=== PATIENT | female | born 1980 | race African-American/Black ===

== ENCOUNTER 2016-09-23 15:33 | Emergency (ER) | payer SELFPAY ==
[2016-09-23 16:14] LABS: BILIRUBIN,URINE NEGATIVE (NEGATIVE); BLOOD/HEMOGLOBIN,URINE NEGATIVE (NEGATIVE); GLUCOSE, URINE NEGATIVE (NEGATIVE); KETONES,URINE NEGATIVE (NEGATIVE); LEUKOCYTE ESTERASE ,URINE NEGATIVE (NEGATIVE); NITRITES,URINE NEGATIVE (NEGATIVE); PROTEIN,URINE NEGATIVE (NEGATIVE); UROBILINOGEN,URINE NORMAL (NORMAL)
[2016-09-23 16:28] LABS: APPEARANCE,URINE CLEAR (CLEAR); BACTERIA,URINE NEGATIVE /HPF (NEGATIVE); COLOR,URINE YELLOW (YELLOW); MUCUS,URINE MODERATE /HPF (NEGATIVE); RBC,URINE NONE SEEN /HPF (NEGATIVE); SQUAMOUS EPITHELIAL CELL,UR FEW /HPF (NEGATIVE)
--- NOTE | 2016-09-23 16:45 | DR.PSYCH ---
HPI - Time Seen Time seen: 16:00 - Complaint Chief Complaint:: pt was brought in by [facility]ht[facility] wise after interview in which she was being arrested. she told that she would kill herself. - Reviewed Nurses Notes Review: Yes - Source History Provided: Patient, Law Enforcement - Mode of Arrival Mode of Arrival: Ambulatory - Timing Onset of Chief Complaint: 09/23/16 Came on: Suddenly - Duration Duration: Constant Duration: Minutes - Context Presents With: Depression, Violence Ideation: Suicidal Plan: None Stressors: Other (drug abuse) History of: Depression, Suicidal Attempt Medication Compliance: No - Quality Quality: None Hallucinations: None - Severity Severity: Able to care for self - Associated signs and symptoms Intoxification: Cocaine (benzo and THC) PMH - PMH Past Medical History: Yes Past Medical History: Asthma, Migraines Past Surgical History: No (unknown) - Family History History of Family Medical Conditions: Yes Family Medical History: Hypertension - Social History Do you use any recreational Drugs:: No Lives Where: Home - infectious screening In the last 2 months have you had wt loss of >10#?: MARINA Have you had fever, night sweats or hemotysis?: MARINA Have you traveled outside the country in the last 6 months?: No Isolation: Standard ROS - Review of Systems Constitutional: No Symptoms Reported Eyes: No Symptoms Reported ENTM: No Symptoms Reported Respiratoy: No Symptoms Reported Cardiovascular: No Symptoms Reported Gastrointestinal/Abdominal: No Symptoms Reported Genitourinary: No Symptoms Reported Neurological: Emotional Problems Musculoskeletal: No Symptoms Reported Integumentary: No Symptoms Reported Hematologic/Lymphatic: No Symptoms Reported Endocrine: No Symptoms Reported Psychiatric: Depression, Suicidal All Other Systems: Reviewed and Negative PE - Vitals Vitals: Temperature 98.2 F Pulse Rate 76 Respiratory Rate 18 Blood Pressure [Right Arm] 122/74 Blood Pressure [Left Arm] 107/72 Blood Pressure [Standing] 135/94 Blood Pressure [Sitting] 124/86 Blood Pressure [Lying] 114/71 Blood Pressure 134/69 O2 Sat by Pulse Oximetry 99 - General Limitations: No Limitations General Appearance: Alert, Appears Intoxicated - Head Head Exam: Normal Inspection Head Exam Physical: negative: Laceration, Abrasion, Contusion, Hematoma, Raccoon Eyes, Shaw's Sign, Tenderness of Temporal Artery, CSF Rhinorrhea, CSF Otorrhea, Other - Eyes Eye exam: Normal Appearance, EOMI. negative: Scleral Icterus, Conjunctival Injection Pupils: Regular, Round: Bilateral Sclera/Conjunctival: Normal Inspection: Bilateral - ENT ENT Exam: Normal Exam, Normal Oropharynx - Neck Neck Exam: Normal Inspection, Full ROM, Trachea Midline - Chest Chest Inspection: Normal Inspection - Respiratory Respiratory Exam: Normal Lung Sounds Bilat. negative: Accessory Muscle Use, Respiratory Distress Respiratory Exam: Bilateral Clear to Auscultation - Cardiovascular Cardiovascular Exam: Regular Rate - Extremities Extremities Exam: Normal Inspection, Full ROM - Back Back Exam: Normal Inspection - Neurologic Neurological Exam: Alert, Oriented X3, CN II-XII Intact Patient Oriented To: Person, Place, Time Cranial Nerve Exam: EOM Function (II, III, IV, ): Normal, Facial Sensation (V) : Normal, Facial Palsy (VII): Normal, Spinal Accessory Function (XI): Normal, Tongue Deviation: Normal Cerebellar Function: Normal Gait - Psychiatric Psychiatric Exam: Agitated, Suicidal Ideation - Skin Skin Exam: Intact, Normal Color Course - Treatment Treatment: 2121: patient evaluated by mental health. outpatient therapy recommended. will discharge from. [facility] - Labs Reviewed Result Diagrams: 09/23/16 16:52 09/23/16 16:52 Laboratory: WBC 11.1 X10^3/uL (3.6-10.0) H 09/23/16 16:52 RBC 4.54 X10^6/uL (3.5-5.4) 09/23/16 16:52 Hgb 13.6 g/dL (12.0-16.0) 09/23/16 16:52 Hct 41.4 % (36.0-47.0) 09/23/16 16:52 MCV 91.2 fL (80.0-100.0) 09/23/16 16:52 MCH 30.1 pg (27.0-34.0) 09/23/16 16:52 MCHC 32.9 g/dL (33.0-35.0) L 09/23/16 16:52 RDW 14.0 % (11.6-16.5) 09/23/16 16:52 Plt Count 288 X10^3/uL (150.0-450.0) 09/23/16 16:52 MPV 7.7 fL (7.4-11.0) 09/23/16 16:52 Neut % 50.1 % (42.0-75.0) 09/23/16 16:52 Lymph % 41.9 % (21.0-51.0) 09/23/16 16:52 [place] % 4.8 % (0.0-13.0) 09/23/16 16:52 Eos % 1.8 % (0.9-2.9) 09/23/16 16:52 Baso % 1.4 % (0.2-1.0) H 09/23/16 16:52 Neut # 5.5 x10^3/uL (2.2-4.8) H 09/23/16 16:52 Lymph # 4.6 X10^3/uL (1.3-2.9) H 09/23/16 16:52 [place] # 0.5 x10^3/uL (0.3-0.8) 09/23/16 16:52 Eos # 0.2 x10^3/uL (0.0-0.2) 09/23/16 16:52 Baso # 0.2 X10^3/uL (0.0-0.1) H 09/23/16 16:52 Absolute Nucleated RBC 0.1 /100WBC 09/23/16 16:52 Sodium 144 mmol/L (136-145) 09/23/16 16:52 Corrected Sodium TNP 09/23/16 16:52 Potassium 4.0 mmol/L (3.5-5.1) 09/23/16 16:52 Chloride 106 mmol/L (98-107) 09/23/16 16:52 Carbon Dioxide 31.3 mmol/L (21-32) 09/23/16 16:52 BUN 12 mg/dL (7-18) 09/23/16 16:52 Creatinine 0.90 mg/dL (0.55-1.02) 09/23/16 16:52 Est GFR (MDRD) Af Amer > 60 (>60) 09/23/16 16:52 Est GFR (MDRD) Non-Af > 60 (>60) 09/23/16 16:52 Glucose 56 mg/dL (65-99) L 09/23/16 16:52 Calcium 8.8 mg/dL (8.5-10.1) 09/23/16 16:52 Corrected Calcium TNP 09/23/16 16:52 Total Bilirubin 0.30 mg/dL (0.2-1.0) 09/23/16 16:52 AST 19 Units/L (15-37) 09/23/16 16:52 ALT 19 Units/L (12-78) 09/23/16 16:52 Alkaline Phosphatase 45 Units/L (46-116) L 09/23/16 16:52 Total Protein 7.3 g/dL (6.4-8.2) 09/23/16 16:52 Albumin 3.9 g/dL (3.4-5.0) 09/23/16 16:52 Globulin 3.4 g/dL (2.5-4.5) 09/23/16 16:52 Albumin/Globulin Ratio 1.1 Ratio (1.1-2.1) 09/23/16 16:52 Specimen Type Clean catch urine 09/23/16 15:46 Urine Color Yellow (YELLOW) 09/23/16 15:46 Urine Appearance Clear (CLEAR) 09/23/16 15:46 Urine pH 6.0 (5.0 - 8.0) 09/23/16 15:46 Ur Specific [place] 1.020 (1.000-1.030) 09/23/16 15:46 Urine Protein Negative (NEGATIVE) 09/23/16 15:46 Urine Glucose (UA) Negative (NEGATIVE) 09/23/16 15:46 Urine Ketones Negative (NEGATIVE) 09/23/16 15:46 Urine Occult Blood Negative (NEGATIVE) 09/23/16 15:46 Urine Nitrite Negative (NEGATIVE) 09/23/16 15:46 Urine Bilirubin Negative (NEGATIVE) 09/23/16 15:46 Urine Urobilinogen Normal (NORMAL) 09/23/16 15:46 Ur Leukocyte Esterase Negative (NEGATIVE) 09/23/16 15:46 Urine RBC None seen /HPF (NEGATIVE) 09/23/16 15:46 Urine WBC None seen /HPF (NEGATIVE) 09/23/16 15:46 Ur Squamous Epith Cells Few /HPF (NEGATIVE) 09/23/16 15:46 Urine Bacteria Negative /HPF (NEGATIVE) 09/23/16 15:46 Urine Mucus Moderate /HPF (NEGATIVE) 09/23/16 15:46 Ur Culture Indicated? No/not indicated 09/23/16 15:46 Salicylates 4.3 mg/dL (2.8-20) 09/23/16 16:52 Urine Opiates Screen Negative (NEG=<300) 09/23/16 15:46 Urine Methadone Screen Negative (NEG=<300) 09/23/16 15:46 Acetaminophen 1.6 ug/mL (10-30) L 09/23/16 16:52 Ur Barbiturates Screen Negative (NEG=<200) 09/23/16 15:46 Ur Phencyclidine Scrn Negative (NEG=<25) 09/23/16 15:46 Ur Amphetamines Screen Negative (NEG=<1000) 09/23/16 15:46 U Benzodiazepines Scrn Positive (NEG=<200) A 09/23/16 15:46 Urine Cocaine Screen Positive (NEG=<300) A 09/23/16 15:46 U Marijuana (THC) Screen Positive (NEG=<50) A 09/23/16 15:46 Ethyl Alcohol mg/dL < 3 mg/dL (0-19.9) 09/23/16 16:52 - Diagnosis Discharge Problem: Cocaine abuse Depression (emotion) Qualifiers: Depression Type: unspecified Qualified Code(s): F32.9 - Major depressive disorder, single episode, unspecified - Discharge Plan Condition: Stable Prescriptions: Sertraline HCl [Zoloft] 50 mg PO DAILY #30 tab - Follow ups/Referrals Follow ups/Referrals: N[facility],None [Primary Care Provider] - 3 days - Instructions
[2016-09-23 17:03] LABS: BASOPHILS # (AUTO) 0.2 X10^3/uL (0.0-0.1); BASOPHILS % (AUTO) 1.4 % (0.2-1.0); EOSINOPHILS # (AUTO) 0.2 x10^3/uL (0.0-0.2); EOSINOPHILS % (AUTO) 1.8 % (0.9-2.9); HEMATOCRIT 41.4 % (36.0-47.0); HEMOGLOBIN 13.6 g/dL (12.0-16.0); LYMPHOCYTES # (AUTO) 4.6 X10^3/uL (1.3-2.9); LYMPHOCYTES % (AUTO) 41.9 % (21.0-51.0); MEAN CORPUSCULAR HEMOGLOBIN 30.1 pg (27.0-34.0); MEAN CORPUSCULAR HGB CONC 32.9 g/dL (33.0-35.0); MEAN CORPUSCULAR VOLUME 91.2 fL (80.0-100.0); MEAN PLATELET VOLUME 7.7 fL (7.4-11.0); MONOCYTES # (AUTO) 0.5 x10^3/uL (0.3-0.8); MONOCYTES % (AUTO) 4.8 % (0.0-13.0); NEUTROPHILS # (AUTO) 5.5 x10^3/uL (2.2-4.8); NEUTROPHILS % (AUTO) 50.1 % (42.0-75.0); PLATELET COUNT 288 X10^3/uL (150.0-450.0); RED BLOOD COUNT 4.54 X10^6/uL (3.5-5.4); WHITE BLOOD COUNT 11.1 X10^3/uL (3.6-10.0)
[2016-09-23 17:14] LABS: ACETAMINOPHEN 1.6 ug/mL (10-30); ALANINE AMINOTRANSFERASE 19 Units/L (12-78); ALBUMIN 3.9 g/dL (3.4-5.0); ALKALINE PHOSPHATASE 45 Units/L (46-116); ASPARTATE AMINO TRANSFERASE 19 Units/L (15-37); BLOOD ALCOHOL < 3 mg/dL (0-19.9); BLOOD UREA NITROGEN 12 mg/dL (7-18); CALCIUM 8.8 mg/dL (8.5-10.1); CARBON DIOXIDE 31.3 mmol/L (21-32); CHLORIDE 106 mmol/L (98-107); GLUCOSE 56 mg/dL (65-99); SALICYLATE 4.3 mg/dL (2.8-20); SODIUM 144 mmol/L (136-145); TOTAL PROTEIN 7.3 g/dL (6.4-8.2); eGFR BLACK RACES > 60 (>60); eGFR NON BLACK RACES > 60 (>60)
[2016-09-23 17:17] VITALS: BP 134/69; BMI 19.8
== END 2016-09-23 22:00 | disposition home or self-care (01) ==
LOC: ER 15:33
DX: F32.89 Other specified depressive episodes (principal); F14.10 Cocaine abuse, uncomplicated
CPT/HCPCS: 36415; 80053; 80307; 80320; 81001; 85025; 99283; 99285; G0434; G6038; G6039; G6040

== ENCOUNTER 2016-10-03 13:27 | Emergency (ER) | payer SELFPAY ==
[2016-10-03 13:50] VITALS: BMI 24.9
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
[2016-10-03 15:28] LABS: BASOPHILS # (AUTO) 0.1 X10^3/uL (0.0-0.1); BASOPHILS % (AUTO) 0.6 % (0.2-1.0); EOSINOPHILS # (AUTO) 0.2 x10^3/uL (0.0-0.2); EOSINOPHILS % (AUTO) 1.7 % (0.9-2.9); HEMATOCRIT 39.3 % (36.0-47.0); HEMOGLOBIN 12.6 g/dL (12.0-16.0); LYMPHOCYTES # (AUTO) 3.6 X10^3/uL (1.3-2.9); LYMPHOCYTES % (AUTO) 31.8 % (21.0-51.0); MEAN CORPUSCULAR HGB CONC 32.1 g/dL (33.0-35.0); MEAN CORPUSCULAR VOLUME 93.5 fL (80.0-100.0); MEAN PLATELET VOLUME 7.5 fL (7.4-11.0); MONOCYTES # (AUTO) 0.8 x10^3/uL (0.3-0.8); MONOCYTES % (AUTO) 7.3 % (0.0-13.0); NEUTROPHILS # (AUTO) 6.6 x10^3/uL (2.2-4.8); NEUTROPHILS % (AUTO) 58.6 % (42.0-75.0); PLATELET COUNT 326 X10^3/uL (150.0-450.0); RED BLOOD COUNT 4.21 X10^6/uL (3.5-5.4); RED CELL DISTRIBUTION WIDTH 13.9 % (11.6-16.5); WHITE BLOOD COUNT 11.3 X10^3/uL (3.6-10.0)
[2016-10-03 15:29] LABS: ALANINE AMINOTRANSFERASE 18 Units/L (12-78); ALBUMIN 3.8 g/dL (3.4-5.0); ALKALINE PHOSPHATASE 48 Units/L (46-116); ASPARTATE AMINO TRANSFERASE 13 Units/L (15-37); BLOOD UREA NITROGEN 9 mg/dL (7-18); CALCIUM 8.5 mg/dL (8.5-10.1); CARBON DIOXIDE 28.1 mmol/L (21-32); CHLORIDE 108 mmol/L (98-107); CREATININE 0.76 mg/dL (0.55-1.02); GLUCOSE 96 mg/dL (65-99); SODIUM 144 mmol/L (136-145); TOTAL PROTEIN 7.4 g/dL (6.4-8.2); eGFR BLACK RACES > 60 (>60); eGFR NON BLACK RACES > 60 (>60)
[2016-10-03 15:32] LABS: SERUM PREGNANCY TEST, QUAL NEGATIVE <10 mIU/mL
[2016-10-03 15:47] LABS: BILIRUBIN,URINE NEGATIVE (NEGATIVE); BLOOD/HEMOGLOBIN,URINE NEGATIVE (NEGATIVE); GLUCOSE, URINE NEGATIVE (NEGATIVE); KETONES,URINE NEGATIVE (NEGATIVE); LEUKOCYTE ESTERASE ,URINE 1+ (NEGATIVE); NITRITES,URINE NEGATIVE (NEGATIVE); PROTEIN,URINE 1+ (NEGATIVE); UROBILINOGEN,URINE NORMAL (NORMAL)
--- NOTE | 2016-10-03 16:00 | RAD ---
HISTORY: Medical clearance Study: Single-view chest Comparison: May 02, 2016 Findings: The trachea is midline. The cardiac silhouette is unremarkable. The lungs are clear without focal infiltrate or effusion. The bony thorax is unremarkable. IMPRESSION: 1. No acute cardiopulmonary disease. Reported By:
[2016-10-03 16:03] LABS: AMORPHOUS SEDIMENT,UR TRACE /HPF (NEGATIVE); APPEARANCE,URINE SLIGHTLY HAZY (CLEAR); BACTERIA,URINE TRACE /HPF (NEGATIVE); COLOR,URINE YELLOW (YELLOW); RBC,URINE RARE /HPF (NEGATIVE); SQUAMOUS EPITHELIAL CELL,UR MANY /HPF (NEGATIVE)
[2016-10-03 16:04] LABS: MUCUS,URINE MODERATE /HPF (NEGATIVE)
[2016-10-03] MEDS ORDERED: K-LYTE EFFERVESCENT PO ONE ×2 (16:11→16:25)
[2016-10-03 17:14] LABS: BLOOD UREA NITROGEN 8 mg/dL (7-18); CALCIUM 8.9 mg/dL (8.5-10.1); CARBON DIOXIDE 29.5 mmol/L (21-32); CHLORIDE 107 mmol/L (98-107); CREATININE 0.73 mg/dL (0.55-1.02); GLUCOSE 93 mg/dL (65-99); SODIUM 143 mmol/L (136-145); eGFR BLACK RACES > 60 (>60); eGFR NON BLACK RACES > 60 (>60)
[2016-10-03] MEDS ORDERED: CIPRO TAB 500 MG PO ONE ×2 (17:16→17:18)
[2016-10-03 19:36] VITALS: BP 151/82
== END 2016-10-03 20:50 | disposition left against medical advice (07) ==
LOC: ER 14:00
DX: R45.851 Suicidal ideations (principal); F19.10 Other psychoactive substance abuse, uncomplicated; F31.89 Other bipolar disorder
CPT/HCPCS: 36415; 71010; 80048; 80053; 80307; 81001; 84703; 85025; 93005; 93010; 99282; 99285; G0434

== ENCOUNTER 2016-10-04 22:29 | Emergency (ER) | payer SELFPAY ==
[2016-10-04 22:59] VITALS: BMI 21.6
[2016-10-04 23:48] LABS: BASOPHILS # (AUTO) 0.1 X10^3/uL (0.0-0.1); BASOPHILS % (AUTO) 1.5 % (0.2-1.0); EOSINOPHILS # (AUTO) 0.4 x10^3/uL (0.0-0.2); EOSINOPHILS % (AUTO) 4.3 % (0.9-2.9); HEMATOCRIT 38.4 % (36.0-47.0); HEMOGLOBIN 12.9 g/dL (12.0-16.0); LYMPHOCYTES # (AUTO) 3.8 X10^3/uL (1.3-2.9); LYMPHOCYTES % (AUTO) 37.5 % (21.0-51.0); MEAN CORPUSCULAR HEMOGLOBIN 31.2 pg (27.0-34.0); MEAN CORPUSCULAR HGB CONC 33.5 g/dL (33.0-35.0); MEAN CORPUSCULAR VOLUME 93.3 fL (80.0-100.0); MEAN PLATELET VOLUME 7.7 fL (7.4-11.0); MONOCYTES # (AUTO) 0.5 x10^3/uL (0.3-0.8); MONOCYTES % (AUTO) 5.3 % (0.0-13.0); NEUTROPHILS # (AUTO) 5.2 x10^3/uL (2.2-4.8); NEUTROPHILS % (AUTO) 51.4 % (42.0-75.0); PLATELET COUNT 329 X10^3/uL (150.0-450.0); RED BLOOD COUNT 4.12 X10^6/uL (3.5-5.4); RED CELL DISTRIBUTION WIDTH 13.8 % (11.6-16.5); WHITE BLOOD COUNT 10.2 X10^3/uL (3.6-10.0)
[2016-10-04 23:50] LABS: BILIRUBIN,URINE NEGATIVE (NEGATIVE); BLOOD/HEMOGLOBIN,URINE NEGATIVE (NEGATIVE); GLUCOSE, URINE NEGATIVE (NEGATIVE); KETONES,URINE NEGATIVE (NEGATIVE); LEUKOCYTE ESTERASE ,URINE 3+ (NEGATIVE); NITRITES,URINE NEGATIVE (NEGATIVE); PROTEIN,URINE NEGATIVE (NEGATIVE); UROBILINOGEN,URINE NORMAL (NORMAL)
[2016-10-04 23:58] LABS: ALANINE AMINOTRANSFERASE 20 Units/L (12-78); ALBUMIN 3.8 g/dL (3.4-5.0); ALKALINE PHOSPHATASE 49 Units/L (46-116); ASPARTATE AMINO TRANSFERASE 22 Units/L (15-37); BLOOD UREA NITROGEN 11 mg/dL (7-18); CARBON DIOXIDE 28.4 mmol/L (21-32); CHLORIDE 107 mmol/L (98-107); CREATININE 0.94 mg/dL (0.55-1.02); GLUCOSE 78 mg/dL (65-99); SODIUM 142 mmol/L (136-145); TOTAL PROTEIN 7.3 g/dL (6.4-8.2); eGFR BLACK RACES > 60 (>60); eGFR NON BLACK RACES > 60 (>60)
[2016-10-05] LABS: APPEARANCE,URINE SLIGHTLY HAZY (CLEAR); COLOR,URINE YELLOW (YELLOW)
[2016-10-05 00:01] LABS: AMORPHOUS SEDIMENT,UR TRACE /HPF (NEGATIVE); BACTERIA,URINE 1+ /HPF (NEGATIVE); MUCUS,URINE FEW /HPF (NEGATIVE); RBC,URINE NONE SEEN /HPF (NEGATIVE); SQUAMOUS EPITHELIAL CELL,UR RARE /HPF (NEGATIVE)
[2016-10-05 00:06] LABS: ACETAMINOPHEN 5.4 ug/mL (10-30); SALICYLATE 4.7 mg/dL (2.8-20)
[2016-10-05 00:07] LABS: BLOOD ALCOHOL < 3 mg/dL (0-19.9)
[2016-10-05] MEDS ORDERED: HALDOL INJ IM ONE (01:03)
[2016-10-05] MEDS ORDERED: HALDOL INJ ONE (01:03)
--- NOTE | 2016-10-05 02:51 | DR.PSYCH ---
HPI - Time Seen Time seen: 12:50 - PCP Primary Care Physician: JEAN PIERRE - HPI Comment HPI Comment: - YESTERDAY, LEFT AND RETURN TONIGHT. HOMICIDAL IDEATION. USE COCAINE AND MET RECENTLY. NEED HELP. HAVE BIPOLAR DISORDER AND CURRENTLY NOT TAKING HER MEDICATIONS. NO FEVER OR DYSURIA. - Complaint Chief Complaint Doctors Comments: MENTAL HEALTH EVALUATION. Chief Complaint:: PT HERE FOR MENTAL HEALTH EVAL PT WANTS PLACEMENT - Reviewed Nurses Notes Review: Yes - Source History Provided: Patient - Mode of Arrival Mode of Arrival: Ambulatory - Timing Onset of Chief Complaint: 10/04/16 Came on: Gradually - Duration Duration: Constant Duration: Days - Context Presents With: Depression Ideation: Suicidal, Homicidal Plan: None Stressors: Family, Relationships History of: Anxiety, Bipolar, Depression, Suicidal Attempt, Other (HOMICIDAL) Medication Compliance: No - Quality Quality: None Hallucinations: None - Severity Severity: Able to care for self - Associated signs and symptoms Intoxification: Marijuana, Cocaine, Amphetamines PMH - PMH Past Medical History: Yes Past Medical History: Asthma, Migraines Past Medical History Comment: BIPOLAR Past Surgical History: Yes - Family History History of Family Medical Conditions: Yes Family Medical History: Hypertension - Social History Type of Tobacco Use: Cigarettes Does any household member use tobacco: No Alcohol Use: Occasionally Do you use any recreational Drugs:: Yes (THC,COCAIN) Lives With: Family Lives Where: Home - infectious screening In the last 2 months have you had wt loss of >10#?: NO Have you had fever, night sweats or hemotysis?: No Have you traveled outside the country in the last 6 months?: No Isolation: Standard ROS - Review of Systems Constitutional: No Symptoms Reported. negative: Chills, Fever, Malaise, Weakness, Fatigue, Loss of Appetite Eyes: No Symptoms Reported. negative: Eye Pain, Discharge ENTM: No Symptoms Reported. negative: Ear Pain, Nose Discharge, Nose Congestion , Throat Pain Respiratoy: negative: Productive Cough, Non-Productive Cough, Short of Breath, Wheezing, Hemoptysis Cardiovascular: No Symptoms Reported. negative: Chest Pain, Edema, Palpitations Gastrointestinal/Abdominal: No Symptoms Reported. negative: Abdominal Pain, Constipation, Diarrhea, Nausea, Vomiting Genitourinary: No Symptoms Reported. negative: Dysuria, Frequency, Hematuria, Pain Neurological: Depressed. negative: Headache, Weakness, Dizziness Musculoskeletal: No Symptoms Reported Integumentary: No Symptoms Reported Hematologic/Lymphatic: No Symptoms Reported Endocrine: No Symptoms Reported Psychiatric: Depression, Other (HOMICIDAL, SUBSTANCE ABUSE) All Other Systems: Reviewed and Negative PE - Vitals Vitals: Temperature 98.1 F Pulse Rate [Left Brachial] 80 Pulse Rate 113 Respiratory Rate 16 Blood Pressure [Right Arm] 120/71 Blood Pressure [Left Arm] 118/78 Blood Pressure [Standing] 135/94 Blood Pressure [Sitting] 124/86 Blood Pressure [Lying] 114/71 Blood Pressure 130/90 O2 Sat by Pulse Oximetry 99 - General Limitations: No Limitations General Appearance: Alert - Head Head Exam: Normal Inspection Head Exam Physical: Other - Eyes Eye exam: Normal Appearance Pupils: Regular, Round: Bilateral, Reactive: Bilateral Sclera/Conjunctival: Normal Inspection: Bilateral - ENT ENT Exam: Normal External Ear Exam - Neck Neck Exam: Trachea Midline. negative: Tenderness, Meningismus, Lymphadenopathy - Chest Chest Inspection: Symmetric Chest Wall Rise - Respiratory Respiratory Exam: Normal Lung Sounds Bilat Respiratory Exam: Bilateral Clear to Auscultation - Cardiovascular Cardiovascular Exam: Regular Rate, Normal Rhythm, Normal Heart Sounds - Abdominal Exam Abdominal Exam: Normal Bowel Sounds, Soft. negative: Tenderness - Extremities Extremities Exam: Normal Inspection - Back Back Exam: Normal Inspection - Neurologic Neurological Exam: Alert, Oriented X3, CN II-XII Intact, Normal Gait, Reflexes Normal. negative: Motor Sensory Deficit Speech: Fluid Speech Cranial Nerve Exam: EOM Function (II, III, IV, ): Normal, Facial Sensation (V) : Normal, Facial Palsy (VII): Normal, Gag reflex (XI): Normal, Spinal Accessory Function (XI): Normal, Tongue Deviation: Normal Motor Strength - LUE: 5/5 Motor Strength - RUE: 5/5 Motor Strength - LLE: 5/5 Motor Strength - RLE: 5/5 Upper Motor Neuron Exam: Babinski Sign: Normal DTR: brachioradialis (R): 4+, Patellar (L): 4+ - Psychiatric Psychiatric Exam: Depressed, Homicidal Ideation, Other (SUBSTANCE ABUSE.) Expanded Psychiatric Exam: Paranoid - Skin Skin Exam: Normal Color MDD - Differential Diagnosis Differential diagnosis: Bipolar disorder, Conversion disorder, Depression, Homicidal (S) Course - Treatment Treatment: SEE ORDERS. ALPHONSO WOODS IN ED. - Consultation Consultation Comments: PATIENT IS MEDICALLY CLEAR. - Education/Counseling Education/Counseling: Patient, Family Educated On: Treatment ROR - Labs Reviewed Laboratory Results Reviewed?: Yes Result Diagrams: 10/04/16 23:31 10/04/16 23: Laboratory: WBC 10.2 X10^3/uL (3.6-10.0) H 10/04/16 23: RBC 4.12 X10^6/uL (3.5-5.4) 10/04/16: Hgb 12.9 g/dL (12.0-16.0) 10/04/16: Hct 38.4 % (36.0-47.0) 10/04/16: MCV 93.3 fL (80.0-100.0) 10/04/16: MCH 31.2 pg (27.0-34.0) 10/04/16: MCHC 33.5 g/dL (33.0-35.0) 10/04/16: RDW 13.8 % (11.6-16.5) 10/04/16: Plt Count 329 X10^3/uL (150.0-450.0) 10/04/16: MPV 7.7 fL (7.4-11.0) 10/04/16 23: Neut % 51.4 % (42.0-75.0) 10/04/16 23: Lymph % 37.5 % (21.0-51.0) 10/04/16 23: [place] % 5.3 % (0.0-13.0) 10/04/16: Eos % 4.3 % (0.9-2.9) H 10/04/16 23: Baso % 1.5 % (0.2-1.0) H 10/04/16 23: Neut # 5.2 x10^3/uL (2.2-4.8) H 10/04/16: Lymph # 3.8 X10^3/uL (1.3-2.9) H 10/04/16 23: [place] # 0.5 x10^3/uL (0.3-0.8) 10/04/16: Eos # 0.4 x10^3/uL (0.0-0.2) H 10/04/16 23:31 Baso # 0.1 X10^3/uL (0.0-0.1) 10/04/16 23:31 Absolute Nucleated RBC 0.1 /100WBC 10/04/16 23:31 Sodium 142 mmol/L (136-145) 10/04/16 23:31 Corrected Sodium TNP 10/04/16 23:31 Potassium 4.1 mmol/L (3.5-5.1) 10/04/16 23:31 Chloride 107 mmol/L (98-107) 10/04/16 23:31 Carbon Dioxide 28.4 mmol/L (21-32) 10/04/16 23:31 BUN 11 mg/dL (7-18) 10/04/16 23:31 Creatinine 0.94 mg/dL (0.55-1.02) 10/04/16 23:31 Est GFR (MDRD) Af Amer > 60 (>60) 10/04/16 23:31 Est GFR (MDRD) Non-Af > 60 (>60) 10/04/16 23:31 Glucose 78 mg/dL (65-99) 10/04/16 23: Calcium 9.0 mg/dL (8.5-10.1) 10/04/16 23:31 Corrected Calcium TNP 10/04/16 23:31 Total Bilirubin 0.30 mg/dL (0.2-1.0) 10/04/16 23:31 AST 22 Units/L (15-37) 10/04/16 23:31 ALT 20 Units/L (12-78) 10/04/16 23:31 Alkaline Phosphatase 49 Units/L (46-116) 10/04/16 23:31 Total Protein 7.3 g/dL (6.4-8.2) 10/04/16 23:31 Albumin 3.8 g/dL (3.4-5.0) 10/04/16 23: Globulin 3.5 g/dL (2.5-4.5) 10/04/16 23:31 Albumin/Globulin Ratio 1.1 Ratio (1.1-2.1) 10/04/16 23:31 HCG, Qual Negative <10 mIU/mL 10/04/16 23:31 Specimen Type Clean catch urine 10/04/16 23:40 Urine Color Yellow (YELLOW) 10/04/16 23:40 Urine Appearance Slightly hazy (CLEAR) 10/04/16 23:40 Urine pH 7.0 (5.0 - 8.0) 10/04/16 23:40 Ur Specific [place] 1.020 (1.000-1.030) 10/04/16 23:40 Urine Protein Negative (NEGATIVE) 10/04/16 23:40 Urine Glucose (UA) Negative (NEGATIVE) 10/04/16 23:40 Urine Ketones Negative (NEGATIVE) 10/04/16 23:40 Urine Occult Blood Negative (NEGATIVE) 10/04/16 23:40 Urine Nitrite Negative (NEGATIVE) 10/04/16 23:40 Urine Bilirubin Negative (NEGATIVE) 10/04/16 23:40 Urine Urobilinogen Normal (NORMAL) 10/04/16 23:40 Ur Leukocyte Esterase 3+ (NEGATIVE) 10/04/16 23:40 Urine RBC None seen /HPF (NEGATIVE) 10/04/16 23:40 Urine WBC 6-8 /HPF (NEGATIVE) 10/04/16 23:40 Ur Squamous Epith Cells Rare /HPF (NEGATIVE) 10/04/16 23:40 Amorphous Sediment Trace /HPF (NEGATIVE) 10/04/16 23:40 Urine Bacteria 1+ /HPF (NEGATIVE) 10/04/16 23:40 Urine Mucus Few /HPF (NEGATIVE) 10/04/16 23:40 Ur Culture Indicated? Yes/culture set up 10/04/16 23:40 Salicylates 4.7 mg/dL (2.8-20) 10/04/16 23:31 Urine Opiates Screen Negative (NEG=<300) 10/04/16 23:40 Urine Methadone Screen Negative (NEG=<300) 10/04/16 23:40 Acetaminophen 5.4 ug/mL (10-30) L 10/04/16 23:31 Ur Barbiturates Screen Negative (NEG=<200) 10/04/16 23:40 Ur Phencyclidine Scrn Negative (NEG=<25) 10/04/16 23:40 Ur Amphetamines Screen Positive (NEG=<1000) A 10/04/16 23:40 U Benzodiazepines Scrn Positive (NEG=<200) A 10/04/16 23:40 Urine Cocaine Screen Positive (NEG=<300) A 10/04/16 23:40 U Marijuana (THC) Screen Positive (NEG=<50) A 10/04/16 23:40 Ethyl Alcohol mg/dL < 3 mg/dL (0-19.9) 10/04/16 23:31 - EKG Rhythm: NSR (EKG NOTED) - Diagnosis Discharge Problem: Substance abuse, History of homicidal ideation, Bipolar 1 disorder, depressed, moderate UTI (urinary tract infection) Qualifiers: Urinary tract infection type: urethritis Qualified Code(s): N34.2 - Other urethritis - Discharge Plan Condition: Stable - Follow ups/Referrals Follow ups/Referrals: Artur GREENFIELD [Primary Care Provider] - 3 days - Instructions
[2016-10-05 03:50] LABS: SERUM PREGNANCY TEST, QUAL NEGATIVE <10 mIU/mL
[2016-10-05] MEDS ORDERED: BACTRIM DS TAB PO SCH (12:00)
[2016-10-05] MEDS ORDERED: NICODERM PATCH 21 MG/24 HR TD SCH (12:00)
[2016-10-05] MEDS ORDERED: VISTARIL PO PRN (12:02)
[2016-10-05] MEDS ORDERED: NICODERM PATCH 21 MG/24 HR TD ONE (12:08)
[2016-10-05] MEDS ORDERED: BACTRIM DS TAB PO ONE (12:08)
[2016-10-05] MEDS ORDERED: VISTARIL PO ONE (12:08)
[2016-10-05 14:39] VITALS: BP 121/78
== END 2016-10-06 09:15 | disposition short-term general hospital (02) ==
LOC: ER 23:06
DX: F31.10 Bipolar disorder, current episode manic without psychotic features, unspecified (principal); F31.32 Bipolar disorder, current episode depressed, moderate; F19.10 Other psychoactive substance abuse, uncomplicated; N34.2 Other urethritis; Z91.5 Personal history of self-harm
CPT/HCPCS: 36415; 80053; 80307; 80320; 81001; 84703; 85025; 87086; 93005; 93010; 96372; 99285; Q0177; G0434; G6038; G6039; G6040; J1630

== ENCOUNTER 2016-10-21 15:09 | Emergency (ER) | payer SELFPAY ==
[2016-10-21 15:16] VITALS: BP 116/62; BMI 22.1
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
[2016-10-21] MEDS ORDERED: FLEXERIL TAB 10 MG PO ONE (17:43)
[2016-10-21] MEDS ORDERED: MOTRIN TAB 600 MG PO ONE ×2 (17:43→17:47)
[2016-10-21] MEDS ORDERED: FLEXERIL TAB 10 MG ONE (17:47)
== END 2016-10-21 17:54 | disposition home or self-care (01) ==
LOC: ER 15:18
DX: S39.012A Strain of muscle, fascia and tendon of lower back, initial encounter (principal); S33.5XXA Sprain of ligaments of lumbar spine, initial encounter; M54.2 Cervicalgia; M54.89 Other dorsalgia; M79.606 Pain in leg, unspecified; V89.2XXA Person injured in unspecified motor-vehicle accident, traffic, initial encounter
CPT/HCPCS: 72110; 73552; 99282

== ENCOUNTER 2016-10-24 18:47 | Emergency (ER) | payer SELFPAY ==
[2016-10-24 18:54] VITALS: BP 121/81; BMI 23.5
--- NOTE | 2016-10-24 19:03 | DR.GENAD ---
HPI - PCP Primary Care Physician: NFD - Complaint/Symptoms Chief Complaint Doctors Comments: Patient states that she had vomited x five sinc this morning. Denies diarrhea. Admits to abdominal, severe, sharp aggravated by pressure Chief Complaint:: N/V ABDOMINAL PAIN Self Treatment fo Chief Complaint: NONE - Source History Provided: Patient - Mode of Arrival Mode of Arrival: Wheelchair - Timing Onset of Chief Complaint: 10/24/16 PMH - PMH Past Medical History: Yes Past Medical History: Asthma Past Surgical History: No - Family History History of Family Medical Conditions: Yes Family Medical History: Hypertension - Social History Does patient currently use any type of tobacco product: Yes Have you used tobacco products in the last 12 months: Yes Type of Tobacco Use: Cigarettes Does any household member use tobacco: No Alcohol Use: Occasionally Do you use any recreational Drugs:: Yes Lives With: Family Lives Where: Home - infectious screening In the last 2 months have you had wt loss of >10#?: NO Have you had fever, night sweats or hemotysis?: No Have you traveled outside the country in the last 6 months?: No Isolation: Standard ROS - Review of Systems Eyes: No Symptoms Reported ENTM: No Symptoms Reported Respiratoy: No Symptoms Reported Cardiovascular: No Symptoms Reported Gastrointestinal/Abdominal: No Symptoms Reported Genitourinary: No Symptoms Reported Neurological: No Symptoms Reported Musculoskeletal: No Symptoms Reported Integumentary: No Symptoms Reported Hematologic/Lymphatic: No Symptoms Reported Endocrine: No Symptoms Reported Psychiatric: No Symptoms Reported All Other Systems: Reviewed and Negative PE - Vital Signs Vitals: Temperature 97.7 F Pulse Rate 71 Respiratory Rate 22 Blood Pressure [Right Arm] 121/78 Blood Pressure [Left Arm] 118/78 Blood Pressure [Standing] 135/94 Blood Pressure [Sitting] 124/86 Blood Pressure [Lying] 114/71 Blood Pressure 121/81 O2 Sat by Pulse Oximetry 100 - General Limitations: No Limitations General Appearance: Alert, In No Apparent Distress - Head Head Exam: Normal Inspection, Atraumatic - Eyes Eye exam: Normal Appearance, PERRL, EOMI - ENT ENT Exam: Normal Exam External Ear Exam: Normal External Inspection TM/Canal Exam: Bilateral Normal Nose Exam: Normal Nose Exam Mouth Exam: Normal Inspection Throat Exam: Normal Inspection - Neck Neck Exam: Normal Inspection, Full ROM - Respiratory Respiratory Exam: Normal Lung Sounds Bilat, Accessory Muscle Use Respiratory Exam: Bilateral Clear to Auscultation - Cardiovascular Cardiovascular Exam: Regular Rate, Normal Rhythm - Abdominal Exam Abdominal Exam: Normal Inspection, Normal Bowel Sounds, Soft. negative: Tenderness, Rebound, Rigidity Abdominal Tenderness: negative: RUQ, RLQ, LUQ, LLQ - Extremities Extremities Exam: Normal Inspection - Back Back Exam: Normal Inspection - Neurologic Neurological Exam: Alert, Oriented X3, CN II-XII Intact - Psychiatric Psychiatric Exam: Normal Affect - Skin Skin Exam: Warm, Dry Course - Reevaluation 1st: Unchanged ROR - Labs Reviewed Result Diagrams: 10/24/16 19:23 10/24/16 19: Laboratory: WBC 12.6 X10^3/uL (3.6-10.0) H 10/24/16 19: RBC 4.90 X10^6/uL (3.5-5.4) 10/24/16 19: Hgb 14.8 g/dL (12.0-16.0) 10/24/16 19: Hct 44.4 % (36.0-47.0) 10/24/16 19: MCV 90.7 fL (80.0-100.0) 10/24/16 19: MCH 30.3 pg (27.0-34.0) 10/24/16 19: MCHC 33.4 g/dL (33.0-35.0) 10/24/16 19: RDW 13.1 % (11.6-16.5) 10/24/16 19: Plt Count 357 X10^3/uL (150.0-450.0) 10/24/16 19: MPV 7.5 fL (7.4-11.0) 10/24/16 19: Neut % 74.7 % (42.0-75.0) 10/24/16 19: Lymph % 20.2 % (21.0-51.0) L 10/24/16 19: [place] % 4.1 % (0.0-13.0) 10/24/16 19: Eos % 0.6 % (0.9-2.9) L 10/24/16 19: Baso % 0.4 % (0.2-1.0) 10/24/16: Neut # 9.4 x10^3/uL (2.2-4.8) H 10/24/16 19:23 Lymph # 2.5 X10^3/uL (1.3-2.9) 10/24/16 19:23 [place] # 0.5 x10^3/uL (0.3-0.8) 10/24/16 19:23 Eos # 0.1 x10^3/uL (0.0-0.2) 10/24/16 19:23 Baso # 0.1 X10^3/uL (0.0-0.1) 10/24/16 19:23 Absolute Nucleated RBC 0.0 /100WBC 10/24/16 19:23 Amylase 24 Units/L (25-115) L 10/24/16 19:23 Lipase 66 Units/L (73-393) L 10/24/16 19:23 H. pylori IgG Antibody Positive (NEGATIVE) A 10/24/16 19:23 - Diagnosis Discharge Problem: Helicobacter pylori gastritis - Discharge Plan Condition: Stable - Follow ups/Referrals Follow ups/Referrals: NFD,None [Primary Care Provider] - 3 days - Instructions
[2016-10-24] MEDS ORDERED: BENTYL I.M. INJ 10 MG IM ONE ×2 (19:11→19:13)
[2016-10-24] MEDS ORDERED: ZOFRAN TAB 4 MG PO ONE (19:11)
[2016-10-24] MEDS ORDERED: ZOFRAN TAB 4 MG ONE (19:12)
[2016-10-24] MEDS ORDERED: NS 1000 ML 1,000 ML IV ONE (19:13)
[2016-10-24] MEDS ORDERED: NS 1000 ML 1,000 ML ONE (19:19)
[2016-10-24] MEDS ORDERED: TORADOL 30 MG VIAL IVP ONE (19:20)
[2016-10-24] MEDS ORDERED: TORADOL 30 MG VIAL ONE (19:26)
[2016-10-24 19:36] LABS: BASOPHILS # (AUTO) 0.1 X10^3/uL (0.0-0.1); BASOPHILS % (AUTO) 0.4 % (0.2-1.0); EOSINOPHILS # (AUTO) 0.1 x10^3/uL (0.0-0.2); EOSINOPHILS % (AUTO) 0.6 % (0.9-2.9); HEMATOCRIT 44.4 % (36.0-47.0); HEMOGLOBIN 14.8 g/dL (12.0-16.0); LYMPHOCYTES # (AUTO) 2.5 X10^3/uL (1.3-2.9); LYMPHOCYTES % (AUTO) 20.2 % (21.0-51.0); MEAN CORPUSCULAR HEMOGLOBIN 30.3 pg (27.0-34.0); MEAN CORPUSCULAR HGB CONC 33.4 g/dL (33.0-35.0); MEAN CORPUSCULAR VOLUME 90.7 fL (80.0-100.0); MEAN PLATELET VOLUME 7.5 fL (7.4-11.0); MONOCYTES # (AUTO) 0.5 x10^3/uL (0.3-0.8); MONOCYTES % (AUTO) 4.1 % (0.0-13.0); NEUTROPHILS # (AUTO) 9.4 x10^3/uL (2.2-4.8); NEUTROPHILS % (AUTO) 74.7 % (42.0-75.0); PLATELET COUNT 357 X10^3/uL (150.0-450.0); RED CELL DISTRIBUTION WIDTH 13.1 % (11.6-16.5); WHITE BLOOD COUNT 12.6 X10^3/uL (3.6-10.0)
[2016-10-24 19:43] LABS: AMYLASE 24 Units/L (25-115); LIPASE 66 Units/L (73-393)
[2016-10-24 19:47] LABS: ALANINE AMINOTRANSFERASE 19 Units/L (12-78); ALBUMIN 4.3 g/dL (3.4-5.0); ALKALINE PHOSPHATASE 51 Units/L (46-116); ASPARTATE AMINO TRANSFERASE 14 Units/L (15-37); BLOOD UREA NITROGEN 6 mg/dL (7-18); CALCIUM 9.3 mg/dL (8.5-10.1); CARBON DIOXIDE 22.2 mmol/L (21-32); CHLORIDE 100 mmol/L (98-107); CREATININE 0.96 mg/dL (0.55-1.02); GLUCOSE 97 mg/dL (65-99); SODIUM 136 mmol/L (136-145); TOTAL PROTEIN 8.1 g/dL (6.4-8.2); eGFR BLACK RACES > 60 (>60); eGFR NON BLACK RACES > 60 (>60)
== END 2016-10-24 20:05 | disposition home or self-care (01) ==
LOC: ER 18:56
DX: B96.81 Helicobacter pylori [H. pylori] as the cause of diseases classified elsewhere (principal)
CPT/HCPCS: 36415; 80053; 82150; 83690; 85025; 86140; 86677; 96365; 96372; 96374; 99283; A4222; S0181; J0500; J1885

== ENCOUNTER 2016-10-25 07:08 | Emergency (ER) | payer SELFPAY ==
[2016-10-25 07:12] VITALS: BP 108/81; BMI 23.5
[2016-10-25] MEDS ORDERED: LR 1000 ML IV 1,000 ML IV ONE ×2 (07:23→07:28)
--- NOTE | 2016-10-25 07:23 | DR.GENAD ---
HPI - PCP Primary Care Physician: NFD - Complaint/Symptoms Chief Complaint Doctors Comments: On yesterday patiented was worked up for complaints of vomiting and diarrhea and abdominal pain. She was diagnosed with H pylori gastritis and given Rx to be filled. Patient states that she did not have the money for her medication. Chief Complaint:: PATIENT STATED THAT SHE IS VOMITING AND BURNING IN STOMACH AND CHEST. SHE WAS SEEN IN THE ED YESTERDAY. - Source History Provided: Patient - Mode of Arrival Mode of Arrival: Ambulatory - Timing Onset of Chief Complaint: 10/24/16 PMH - PMH Past Medical History: Yes Past Medical History: Asthma Past Surgical History: No - Family History History of Family Medical Conditions: No Family Medical History: Hypertension - Social History Does patient currently use any type of tobacco product: Yes Have you used tobacco products in the last 12 months: Yes Type of Tobacco Use: Cigarettes Does any household member use tobacco: No Alcohol Use: Occasionally Do you use any recreational Drugs:: Yes Lives With: Family Lives Where: Home - infectious screening In the last 2 months have you had wt loss of >10#?: NO Have you had fever, night sweats or hemotysis?: No Have you traveled outside the country in the last 6 months?: No Isolation: Standard ROS - Review of Systems Eyes: No Symptoms Reported ENTM: No Symptoms Reported Respiratoy: No Symptoms Reported Cardiovascular: No Symptoms Reported Gastrointestinal/Abdominal: No Symptoms Reported Genitourinary: No Symptoms Reported Neurological: No Symptoms Reported Musculoskeletal: No Symptoms Reported Integumentary: No Symptoms Reported Hematologic/Lymphatic: No Symptoms Reported Endocrine: No Symptoms Reported Psychiatric: No Symptoms Reported All Other Systems: Reviewed and Negative PE - Vital Signs Vitals: Temperature 97.5 F Pulse Rate 69 Respiratory Rate 20 Blood Pressure [Right Arm] 121/78 Blood Pressure [Left Arm] 118/78 Blood Pressure [Standing] 135/94 Blood Pressure [Sitting] 124/86 Blood Pressure [Lying] 114/71 Blood Pressure 108/81 O2 Sat by Pulse Oximetry 99 - General Limitations: No Limitations General Appearance: Alert, In No Apparent Distress - Head Head Exam: Normal Inspection, Atraumatic - Eyes Eye exam: Normal Appearance, PERRL, EOMI - ENT ENT Exam: Normal Exam External Ear Exam: Normal External Inspection TM/Canal Exam: Bilateral Normal Nose Exam: Normal Nose Exam Mouth Exam: Normal Inspection Throat Exam: Normal Inspection - Neck Neck Exam: Normal Inspection - Chest Chest Inspection: Normal Inspection - Respiratory Respiratory Exam: Normal Lung Sounds Bilat Respiratory Exam: Bilateral Clear to Auscultation - Cardiovascular Cardiovascular Exam: Regular Rate - Abdominal Exam Abdominal Exam: Normal Inspection Abdominal Tenderness: Epigastrium - Extremities Extremities Exam: Normal Inspection, Full ROM - Back Back Exam: Normal Inspection, Full ROM. negative: Tenderness - Neurologic Neurological Exam: Alert, Oriented X3, CN II-XII Intact - Psychiatric Psychiatric Exam: Normal Affect - Skin Skin Exam: Warm, Dry, Intact ROR - Labs Reviewed Result Diagrams: 10/25/16 07:36 10/25/16 07:36 Laboratory: WBC 12.9 X10^3/uL (3.6-10.0) H 10/25/16 07:36 RBC 4.56 X10^6/uL (3.5-5.4) 10/25/16 07:36 Hgb 13.7 g/dL (12.0-16.0) 10/25/16 07:36 Hct 41.7 % (36.0-47.0) 10/25/16 07:36 MCV 91.5 fL (80.0-100.0) 10/25/16 07:36 MCH 30.0 pg (27.0-34.0) 10/25/16 07:36 MCHC 32.8 g/dL (33.0-35.0) L 10/25/16 07:36 RDW 13.3 % (11.6-16.5) 10/25/16 07:36 Plt Count 315 X10^3/uL (150.0-450.0) 10/25/16 07:36 MPV 7.5 fL (7.4-11.0) 10/25/16 07:36 Neut % 80.2 % (42.0-75.0) H 10/25/16 07:36 Lymph % 15.6 % (21.0-51.0) L 10/25/16 07:36 [place] % 3.2 % (0.0-13.0) 10/25/16 07:36 Eos % 0.4 % (0.9-2.9) L 10/25/16 07:36 Baso % 0.6 % (0.2-1.0) 10/25/16 07:36 Neut # 10.4 x10^3/uL (2.2-4.8) H 10/25/16 07:36 Lymph # 2.0 X10^3/uL (1.3-2.9) 10/25/16 07:36 [place] # 0.4 x10^3/uL (0.3-0.8) 10/25/16 07:36 Eos # 0.1 x10^3/uL (0.0-0.2) 10/25/16 07:36 Baso # 0.1 X10^3/uL (0.0-0.1) 10/25/16 07:36 Absolute Nucleated RBC 0.0 /100WBC 10/25/16 07:36 Sodium 135 mmol/L (136-145) L 10/25/16 07:36 Corrected Sodium 135 mmol/L (136-145) L 10/25/16 07:36 Potassium 3.8 mmol/L (3.5-5.1) 10/25/16 07:36 Chloride 100 mmol/L (98-107) 10/25/16 07:36 Carbon Dioxide 23.9 mmol/L (21-32) 10/25/16 07:36 BUN 7 mg/dL (7-18) 10/25/16 07:36 Creatinine 0.87 mg/dL (0.55-1.02) 10/25/16 07:36 Est GFR (MDRD) Af Amer > 60 (>60) 10/25/16 07:36 Est GFR (MDRD) Non-Af > 60 (>60) 10/25/16 07:36 Glucose 114 mg/dL (65-99) H 10/25/16 07:36 Calcium 8.9 mg/dL (8.5-10.1) 10/25/16 07:36 C-Reactive Protein 0.50 mg/L (0-3.0) 10/25/16 07:36 - Diagnosis Discharge Problem: Helicobacter pylori gastritis - Discharge Plan Condition: Stable - Follow ups/Referrals Follow ups/Referrals: NFD,None [Primary Care Provider] - 3 days - Instructions
[2016-10-25] MEDS ORDERED: PHENERGAN INJ 25 MG IV ONE (07:26)
[2016-10-25] MEDS ORDERED: BENTYL I.M. INJ 10 MG IM ONE ×2 (07:27→07:37)
[2016-10-25] MEDS ORDERED: PHENERGAN INJ 25 MG ONE (07:36)
[2016-10-25 07:50] LABS: BASOPHILS # (AUTO) 0.1 X10^3/uL (0.0-0.1); BASOPHILS % (AUTO) 0.6 % (0.2-1.0); EOSINOPHILS # (AUTO) 0.1 x10^3/uL (0.0-0.2); EOSINOPHILS % (AUTO) 0.4 % (0.9-2.9); HEMATOCRIT 41.7 % (36.0-47.0); HEMOGLOBIN 13.7 g/dL (12.0-16.0); LYMPHOCYTES % (AUTO) 15.6 % (21.0-51.0); MEAN CORPUSCULAR HGB CONC 32.8 g/dL (33.0-35.0); MEAN CORPUSCULAR VOLUME 91.5 fL (80.0-100.0); MEAN PLATELET VOLUME 7.5 fL (7.4-11.0); MONOCYTES # (AUTO) 0.4 x10^3/uL (0.3-0.8); MONOCYTES % (AUTO) 3.2 % (0.0-13.0); NEUTROPHILS # (AUTO) 10.4 x10^3/uL (2.2-4.8); NEUTROPHILS % (AUTO) 80.2 % (42.0-75.0); PLATELET COUNT 315 X10^3/uL (150.0-450.0); RED BLOOD COUNT 4.56 X10^6/uL (3.5-5.4); RED CELL DISTRIBUTION WIDTH 13.3 % (11.6-16.5); WHITE BLOOD COUNT 12.9 X10^3/uL (3.6-10.0)
[2016-10-25 07:58] LABS: BLOOD UREA NITROGEN 7 mg/dL (7-18); CALCIUM 8.9 mg/dL (8.5-10.1); CARBON DIOXIDE 23.9 mmol/L (21-32); CHLORIDE 100 mmol/L (98-107); COR NA(FOR HYPERGLY) 135 mmol/L (136-145); CREATININE 0.87 mg/dL (0.55-1.02); GLUCOSE 114 mg/dL (65-99); SODIUM 135 mmol/L (136-145); eGFR BLACK RACES > 60 (>60); eGFR NON BLACK RACES > 60 (>60)
== END 2016-10-25 09:53 | disposition home or self-care (01) ==
LOC: ER 07:18
DX: B96.81 Helicobacter pylori [H. pylori] as the cause of diseases classified elsewhere (principal)
CPT/HCPCS: 36415; 80048; 85025; 86140; 96365; 96372; 96374; 99283; A4222; J0500; J2550; J7120